=== PATIENT | female | born 1950 | race Caucasian/White ===

== ENCOUNTER 2018-05-23 08:40 | Day surgery (SDC) | payer OTHER, BC ==
[2018-05-16 12:27] VITALS: BMI 26.8
[2018-05-23] MEDS ORDERED: ROPIVACAINE HCL 0.5% 30ML VIAL ONE (09:41)
[2018-05-23] MEDS ORDERED: MIDAZOLAM HCL 2 MG/2 ML SINGLE DOSE VIAL ONE ×2 (09:41→11:14)
[2018-05-23] MEDS ORDERED: SCOPOLAMINE HYDROBROMIDE 1 PATCH PATCH.TD72 ONE (09:43)
[2018-05-23] MEDS ORDERED: BUPIVACAINE LIPOSOME/PF (EXPAREL) 266 MG/20 ML VIAL ONE (09:45)
[2018-05-23] MEDS ORDERED: BUPIVACAINE HCL/PF (5 MG/ML) 30 ML VIAL IJ ONE (09:46)
[2018-05-23] MEDS ORDERED: EPINEPHrine 1:1,000 1 MG/1 ML - 30ML VIAL (INJECTION) ONE (10:38)
[2018-05-23] MEDS ORDERED: BUPIVACAINE HCL/EPINEPHRINE/PF 30 ML VIAL IJ ONE (10:38)
[2018-05-23] MEDS ORDERED: PROPOFOL 20 ML ONE ×2 (11:14)
[2018-05-23] MEDS ORDERED: methylPREDNISolone ACET (DEPO) 40 MG/1 ML VIAL ONE (11:48)
[2018-05-23] MEDS ORDERED: oxyCODONE HCL 5 MG TABLET PO PRN ×3 (12:56)
[2018-05-23] MEDS ORDERED: PROMETHAZINE HCL 25 MG/1 ML VIAL IVPUSH PRN (12:56)
[2018-05-23] MEDS ORDERED: ONDANSETRON 4 MG/2 ML VIAL IVPUSH PRN (12:56)
[2018-05-23] MEDS ORDERED: oxyCODONE HCL 10 MG SUSTAINED ACTING TABLET PO ONE (12:56)
--- NOTE | 2018-05-23 13:00 | DS ---
Physical Examination Vital Signs: Vital Signs Temperature 98.2 F 05/23/18 08:59 Pulse Rate 82 05/23/18 08:59 Respiratory Rate 18 05/23/18 08:59 Blood Pressure 151/85 05/23/18 08:59 O2 Sat by Pulse Oximetry (%) 97 05/23/18 09:05 Discharge Summary Reason For Visit: RIGHT SHOULDER BICEPS TENOSYNOVITIS, CALCIFIC TEND Condition: Good - Instructions Diet, Activity, Other Instructions: Post Operative Instructions: Shoulder Arthroscopy Dr Billy Vazquez 1. Pain following a Shoulder Arthroscopy is variable and can be significant. Some patients will have more pain than others. You have been provided with a prescription for medication that contains a narcotic. You are not allowed to drive while on this medication. You should take Tylenol (Acetaminophen) when taking the pain medication ( it will NOT result in an overdose). Feel free to take medications such as Ibuprofen or Naprosyn in addition to the pain medicine if you do not have any problems with the NSAID class of medications. ASPIRIN 81 MG TWICE A DAY FOR TWO WEEKS IS USEFUL TO MINIMIZE RISK OF BLOOD CLOTS 2. Apply ice to the shoulder for 15 minutes every hour. You may continue this for as many days as necessary. 3. You may find sleeping on an incline (reclining chair) to be more comfortable for the first few days. 4. You may remove your sling when the arm is comfortable. 5. You may use the arm as tolerated. 6. You may remove the bandages in 48 hours. You may shower at that point. 7. Place band-aids on the sutures after your shower.Do not put any creams or lotions on the incision until after the sutures are removed. 8. Please call the office to schedule a visit to have your sutures removed. 9. If for any reason you believe you may have an infection or are concerned, please feel free to call me. I can be reached through our office number 24 hours a day. 10. Please call our office with any questions; we will review the surgical findings during your post-operative visit. Disposition: HOME - Home Medications Comprehensive Discharge Medication List: Ambulatory Orders Acetaminophen [Tylenol -] 1,000 mg PO Q6H PRN 05/16/18 Pravastatin Sodium [Pravachol (Nf)] 20 mg PO HS 05/16/18 Sulfadiazine 1,000 mg PO BID 05/16/18
--- NOTE | 2018-05-23 13:00 | OP ---
Operative Note - Note: Operative Date: 05/23/18 Pre-Operative Diagnosis: RIGHT SHOULDER CALCIFIC TENDONITIS/ RCT Operation: RSA DEBRIDEMENT CALCIFIC TENDONITIS/ RCR/BICEPS TENOTOMY Post-Operative Diagnosis: Same as Pre-op Surgeon: Billy Vazquez [employer] Mill Tender: Angelica Lopez Anesthesia: General Operative Report Dictated: Yes
[2018-05-23 14:54] VITALS: BP 118/71; PULSE 71
--- NOTE | 2018-05-23 14:55 | SURG ---
Surgery Wedger Note Wedger: Angelica Lopez PA-C Date of Service: 05/23/18 Diagnosis: RIGHT SHOULDER CALCIFIC TENDONITIS/ RCT Procedure: RSA DEBRIDEMENT CALCIFIC TENDONITIS/ RCR/BICEPS TENOTOMY I was present for the entirety of the operative procedure. For further detail, please refer to operative report. Visit type - Case Type Case Type: Scheduled - Emergency Emergency Visit: No - New patient This patient is new to me today: Yes Date on this admission: 05/23/18
[2018-05-23 14:56] VITALS: TEMP 98
--- NOTE | 2018-05-27 16:25 | PATH ---
Surgical Pathology Report Patient Name: GRAY JONES [facility]. Rec. #: [id number] /Age/Gender: 1950 (Age: 67) / F Account: [id number] [facility] Taken: 05/23/2018 Received: 05/23/2018 Reported: 05/27/2018 Physicians: Billy Vazquez M.D. Specimen(s) Received SHAVINGS RIGHT SHOULDER Clinical History Right RCR Final Diagnosis SHOULDER SHAVINGS, RIGHT, ARTHROSCOPY, ROTATOR CUFF REPAIR, DEBRIDEMENT: FRAGMENTS OF BENIGN CARTILAGE, DENSE FIBROCONNECTIVE TISSUE, ADIPOSE TISSUE, AND REACTIVE SYNOVIUM. Electronically Signed Vida Quinonez M.D. Gross Description Received in formalin, labeled "shavings right shoulder," is a 3.0 x 2.5 x 0.3 cm. aggregate of eugene-yellow soft tissue fragments. A apprenticeship training representative portion is submitted in one cassette. /05/26/2018 saudi05/26/2018
== END 2018-05-23 14:30 | disposition home or self-care (01) ==
LOC: FASU 08:40
PROVIDERS: ATTEND Orthopaedic Surgery
PROC: 0RNJ4ZZ Release Right Shoulder Joint, Percutaneous Endoscopic Approach (ICD-10-PCS; 2018-05-23)
PROC: 0RBJ4ZZ Excision of Right Shoulder Joint, Percutaneous Endoscopic Approach (ICD-10-PCS; 2018-05-23)
PROC: 0LQ14ZZ Repair Right Shoulder Tendon, Percutaneous Endoscopic Approach (ICD-10-PCS; principal; 2018-05-23 11:42)
DX: M75.31 Calcific tendinitis of right shoulder (principal); M75.51 Bursitis of right shoulder; M75.21 Bicipital tendinitis, right shoulder; M75.111 Incomplete rotator cuff tear or rupture of right shoulder, not specified as traumatic
CPT/HCPCS: 73030-TC-RT-FY; 88304-TC